=== PATIENT | female | born 1965 | race Caucasian/White ===

== ENCOUNTER 2021-05-18 12:02 | Inpatient (IN) | payer OTHER ==
[2021-05-18] MEDS ORDERED: LORazepam 1 MG TABLET PO PRN (12:49)
[2021-05-18] MEDS ORDERED: BISMUTH SUBSALICYLATE 524 MG/30 ML PO PRN (12:49)
[2021-05-18] MEDS ORDERED: NICOTINE 10 MG CARTRIDGE (INHALER) IH PRN (12:49)
[2021-05-18] MEDS ORDERED: MAG HYDROX/AL HYDROX/SIMETH 30 ML UNIT-DOSE CUP PO PRN (12:49)
[2021-05-18] MEDS ORDERED: ACETAMINOPHEN 325 MG TABLET (FP) PO PRN (12:49)
[2021-05-18] MEDS ORDERED: LOPERAMIDE HCL 2 MG CAPSULE PO PRN (12:49)
[2021-05-18] MEDS ORDERED: MAGNESIUM CITRATE 300 ML BOTTLE PO PRN (12:49)
[2021-05-18] MEDS ORDERED: MAGNESIUM HYDROX 2400MG/30ML ORAL SUSPENSION 30 ML CUP PO PRN (12:49)
[2021-05-18] MEDS ORDERED: MENTHOL/PHENOL 1 EACH UD MM PRN (12:49)
[2021-05-18] MEDS ORDERED: IBUPROFEN 400 MG TABLET (FP) PO PRN (12:49)
[2021-05-18 14:06] VITALS: BMI 36.2
[2021-05-18] MEDS ORDERED: hydrOXYzine PAMOATE 25 MG CAPSULE (FP) PO ONE (15:30)
[2021-05-18] MEDS: hydrOXYzine PAMOATE 25 MG CAPSULE (FP) PO SCH ×3 (15:33→22:32)
[2021-05-18] MEDS: ACETAMINOPHEN 325 MG TABLET (FP) PO PRN ×2 (15:52→22:32)
[2021-05-18] MEDS: ONDANSETRON *ODT* 4 MG TABLET SL PRN (15:52)
[2021-05-18] MEDS: METHOCARBAMOL 500 MG TABLET PO PRN (15:53)
[2021-05-18] MEDS: NICOTINE 21 MG/24 HOURS TOPICAL PATCH TD SCH (15:53)
[2021-05-18] MEDS: PRENATAL VITAMINS W/ FOLIC ACID TABLET (FP) PO SCH (15:53)
[2021-05-18 16:25] LABS: ALBUMIN 3.8 g/dl (3.4-5.0); BLOOD UREA NITROGEN 15.4 mg/dL (7-18)
[2021-05-18 16:26] LABS: HEMATOCRIT 39.3 % (32.4-45.2); HEMOGLOBIN 13.4 GM/dL (10.7-15.3); MCH 32.2 pg (25.7-33.7); MEAN CELL VOLUME 94.8 fl (80-96); MEAN PLT VOLUME 11.3 fl (7.5-11.1); PLATELET COUNT 129 10^3/uL (134-434); RBC 4.15 M/mm3 (3.60-5.2); WHITE BLOOD COUNT 5.4 K/mm3 (4.0-10.0)
[2021-05-18 16:28] LABS: CREATININE 0.9 mg/dL (0.55-1.3)
[2021-05-18 16:30] LABS: BILIRUBIN,TOTAL 0.4 mg/dL (0.2-1); TOT PROT 7.8 g/dl (6.4-8.2)
[2021-05-18] MEDS: LORazepam 2 MG TABLET PO SCH ×2 (18:20→22:33)
[2021-05-18] MEDS ORDERED: MELATONIN 5 MG TABLETS PO SCH (22:00)
[2021-05-18] MEDS: THIAMINE HCL 100 MG TABLET (FP) PO SCH (22:32)
[2021-05-19] MEDS: LORazepam 2 MG TABLET PO SCH ×4 (06:04→22:41)
[2021-05-19] MEDS: hydrOXYzine PAMOATE 25 MG CAPSULE (FP) PO SCH ×5 (06:04→22:40)
[2021-05-19] MEDS ORDERED: metFORMIN HCL 500 MG TABLET (FP) PO SCH (10:00)
[2021-05-19] MEDS: METHOCARBAMOL 500 MG TABLET PO PRN (10:27)
[2021-05-19] MEDS: ARTIFICIAL TEARS (POLYVINYL ALCOHOL) OPTH DROPS OU SCH (10:28)
[2021-05-19] MEDS: PRENATAL VITAMINS W/ FOLIC ACID TABLET (FP) PO SCH (10:28)
[2021-05-19] MEDS: NICOTINE 21 MG/24 HOURS TOPICAL PATCH TD SCH (10:28)
[2021-05-19] MEDS: ACETAMINOPHEN 325 MG TABLET (FP) PO PRN (10:29)
[2021-05-19] MEDS: LOSARTAN POTASSIUM 50 MG TABLET PO SCH (11:20)
[2021-05-19] MEDS: ZIPRASIDONE 20 MG CAPSULE PO SCH ×2 (13:56→22:40)
[2021-05-19] MEDS ORDERED: ALBUTEROL SO4 HFA INHALER IH PRN (15:03)
[2021-05-19] MEDS: ONDANSETRON *ODT* 4 MG TABLET SL PRN (17:24)
[2021-05-19] MEDS: LACTULOSE 20 GM/30 ML UDC (FOR ORAL USE ONLY) PO SCH ×2 (18:01→22:41)
[2021-05-19] MEDS: metFORMIN HCL 500 MG TABLET (FP) PO SCH (18:02)
[2021-05-19] MEDS ORDERED: SUVOREXANT 10 MG TABLET PO PRN (22:00)
[2021-05-19] MEDS: THIAMINE HCL 100 MG TABLET (FP) PO SCH (22:40)
[2021-05-20] MEDS: hydrOXYzine PAMOATE 25 MG CAPSULE (FP) PO SCH ×5 (05:41→22:06)
[2021-05-20] MEDS: LORazepam 1 MG TABLET PO SCH ×4 (05:42→22:07)
[2021-05-20] MEDS: metFORMIN HCL 500 MG TABLET (FP) PO SCH ×2 (07:07→17:21)
[2021-05-20] MEDS: ARTIFICIAL TEARS (POLYVINYL ALCOHOL) OPTH DROPS OU SCH (10:09)
[2021-05-20] MEDS: PRENATAL VITAMINS W/ FOLIC ACID TABLET (FP) PO SCH (10:10)
[2021-05-20] MEDS: ZIPRASIDONE 20 MG CAPSULE PO SCH ×2 (10:10→22:06)
[2021-05-20] MEDS: METHOCARBAMOL 500 MG TABLET PO PRN (10:10)
[2021-05-20] MEDS: LOSARTAN POTASSIUM 50 MG TABLET PO SCH (10:12)
[2021-05-20] MEDS: LACTULOSE 20 GM/30 ML UDC (FOR ORAL USE ONLY) PO SCH ×4 (10:12→22:06)
[2021-05-20] MEDS: NICOTINE 21 MG/24 HOURS TOPICAL PATCH TD SCH (10:12)
[2021-05-20] MEDS: ONDANSETRON *ODT* 4 MG TABLET SL PRN (10:13)
[2021-05-20 14:08] LABS: SARS-CoV-2 NAA Not Detected (Not Detected)
[2021-05-20] MEDS: THIAMINE HCL 100 MG TABLET (FP) PO SCH (22:06)
[2021-05-21] MEDS ORDERED: LORazepam 0.5 MG TABLET PO PRN
[2021-05-21] MEDS: LORazepam 0.5 MG TABLET PO SCH ×2 (06:11→10:31)
[2021-05-21] MEDS: hydrOXYzine PAMOATE 25 MG CAPSULE (FP) PO SCH ×3 (06:12→14:37)
[2021-05-21] MEDS: metFORMIN HCL 500 MG TABLET (FP) PO SCH (08:31)
[2021-05-21 09:37] VITALS: BP 102/71; PULSE 92; TEMP 97.3
[2021-05-21] MEDS: ONDANSETRON *ODT* 4 MG TABLET SL PRN (09:41)
[2021-05-21] MEDS: PRENATAL VITAMINS W/ FOLIC ACID TABLET (FP) PO SCH (10:29)
[2021-05-21] MEDS: NICOTINE 21 MG/24 HOURS TOPICAL PATCH TD SCH (10:29)
[2021-05-21] MEDS: LOSARTAN POTASSIUM 50 MG TABLET PO SCH (10:30)
[2021-05-21] MEDS: ZIPRASIDONE 20 MG CAPSULE PO SCH (10:30)
[2021-05-21] MEDS: ARTIFICIAL TEARS (POLYVINYL ALCOHOL) OPTH DROPS OU SCH (10:31)
[2021-05-21] MEDS: METHOCARBAMOL 500 MG TABLET PO PRN (10:31)
[2021-05-21] MEDS: LACTULOSE 20 GM/30 ML UDC (FOR ORAL USE ONLY) PO SCH ×2 (10:33→14:37)
[2021-05-22] MEDS ORDERED: LORazepam 0.5 MG TABLET PO ONE (05:00)
== END 2021-05-21 16:10 | disposition home or self-care (01) | DRG 897 ==
LOC: YASAS 12:02 → Y6N 15:20
PROVIDERS: ADMIT Allergy & Immunology; ATTEND Allergy & Immunology
PROC: HZ2ZZZZ Detoxification Services for Substance Abuse Treatment (ICD-10-PCS; principal; 2021-05-18)
DX: F10.230 Alcohol dependence with withdrawal, uncomplicated (principal); F13.20 Sedative, hypnotic or anxiolytic dependence, uncomplicated; E72.20 Disorder of urea cycle metabolism, unspecified; F12.20 Cannabis dependence, uncomplicated; F17.210 Nicotine dependence, cigarettes, uncomplicated; F10.280 Alcohol dependence with alcohol-induced anxiety disorder; F10.282 Alcohol dependence with alcohol-induced sleep disorder; F20.9 Schizophrenia, unspecified; I10 Essential (primary) hypertension; J45.909 Unspecified asthma, uncomplicated; E11.9 Type 2 diabetes mellitus without complications; Z79.84 Long term (current) use of oral hypoglycemic drugs; K74.60 Unspecified cirrhosis of liver; Z62.810 Personal history of physical and sexual abuse in childhood; E66.9 Obesity, unspecified; Z68.36 Body mass index [BMI] 36.0-36.9, adult; Z86.19 Personal history of other infectious and parasitic diseases
CPT/HCPCS: 36415; 80053; 82140; 82962; 85027; 86593; 86780; 93005; 93010; C9803; Q0162; U0003; U0005

== ENCOUNTER 2021-10-28 10:44 | Inpatient (IN) | payer OTHER ==
[2021-10-28 12:23] VITALS: BMI 36.9
[2021-10-28] MEDS ORDERED: MAG HYDROX/AL HYDROX/SIMETH 30 ML UNIT-DOSE CUP PO PRN (13:01)
[2021-10-28] MEDS ORDERED: NICOTINE POLACRILEX 4 MG GUM BUC PRN (13:01)
[2021-10-28] MEDS ORDERED: LORazepam 1 MG TABLET PO PRN (13:01)
[2021-10-28] MEDS ORDERED: LOPERAMIDE HCL 2 MG CAPSULE PO PRN (13:01)
[2021-10-28] MEDS ORDERED: ACETAMINOPHEN 325 MG TABLET (FP) PO PRN (13:01)
[2021-10-28] MEDS ORDERED: ONDANSETRON *ODT* 4 MG TABLET SL PRN (13:01)
[2021-10-28] MEDS ORDERED: IBUPROFEN 600 MG TABLET (FP) PO PRN (13:01)
[2021-10-28] MEDS ORDERED: BENZOCAINE/MENTHOL (CHLORASEPTIC ) LOZENGE MM PRN (13:01)
[2021-10-28] MEDS ORDERED: MAGNESIUM CITRATE 300 ML BOTTLE PO PRN (13:01)
[2021-10-28] MEDS ORDERED: BISMUTH SUBSALICYLATE 524 MG/30 ML PO PRN (13:01)
[2021-10-28] MEDS ORDERED: IBUPROFEN 400 MG TABLET (FP) PO PRN (13:01)
[2021-10-28] MEDS ORDERED: NICOTINE 10 MG CARTRIDGE (INHALER) IH PRN (13:01)
[2021-10-28] MEDS ORDERED: DICYCLOMINE HCL 10 MG CAPSULE PO PRN (13:01)
[2021-10-28] MEDS ORDERED: ACETAMINOPHEN 325 MG TABLET (FP) ONE (13:03)
[2021-10-28] MEDS ORDERED: ALBUTEROL SO4 HFA INHALER IH PRN (13:04)
[2021-10-28] MEDS ORDERED: LORazepam 2 MG TABLET PO ONE (13:15)
[2021-10-28] MEDS: ACETAMINOPHEN 325 MG TABLET (FP) PO PRN (13:23)
[2021-10-28] MEDS: hydrOXYzine PAMOATE 25 MG CAPSULE (FP) PO SCH ×3 (16:03→22:10)
[2021-10-28] MEDS: ARTIFICIAL TEARS (POLYVINYL ALCOHOL) OPTH DROPS OU SCH (16:03)
[2021-10-28] MEDS: PRENATAL VITAMINS W/ FOLIC ACID TABLET (FP) PO SCH (16:04)
[2021-10-28] MEDS: MAGNESIUM HYDROX 2400MG/30ML ORAL SUSPENSION 30 ML CUP PO PRN (16:06)
[2021-10-28 16:49] LABS: HEMATOCRIT 35.8 % (32.4-45.2); MCH 30.2 pg (25.7-33.7); MCHC 33.6 g/dl (32.0-36.0); MEAN CELL VOLUME 90.1 fl (80-96); MEAN PLT VOLUME 10.7 fl (7.5-11.1); PLATELET COUNT 136 10^3/uL (134-434); RBC 3.97 M/mm3 (3.60-5.2); RDW 13.5 % (11.6-15.6); WHITE BLOOD COUNT 5.5 K/mm3 (4.0-10.0)
[2021-10-28 17:02] LABS: CALCIUM 8.8 mg/dL (8.5-10.1)
[2021-10-28 17:03] LABS: ALBUMIN 3.6 g/dl (3.4-5.0); BLOOD UREA NITROGEN 12.5 mg/dL (7-18)
[2021-10-28 17:04] LABS: BILIRUBIN,TOTAL 0.4 mg/dL (0.2-1); TOT PROT 7.7 g/dl (6.4-8.2)
[2021-10-28 17:05] LABS: CREATININE 0.9 mg/dL (0.55-1.3)
[2021-10-28] MEDS: metFORMIN HCL 500 MG TABLET (FP) PO SCH (17:53)
[2021-10-28] MEDS: LORazepam 2 MG TABLET PO SCH ×2 (17:53→22:10)
[2021-10-28 18:00] LABS: HIV INTERPRETATION NEGATIVE (NEGATIVE)
[2021-10-28] MEDS: ZIPRASIDONE 20 MG CAPSULE PO SCH (22:08)
[2021-10-28] MEDS: MELATONIN 5 MG TABLETS PO SCH (22:10)
[2021-10-28] MEDS: THIAMINE HCL 100 MG TABLET (FP) PO SCH (22:10)
[2021-10-28] MEDS: BUDESONIDE/FORMETEROL FUMARATE 160/4.5 mcg INHALER IH SCH (22:12)
[2021-10-29] MEDS: LORazepam 2 MG TABLET PO SCH ×4 (06:06→22:36)
[2021-10-29] MEDS: hydrOXYzine PAMOATE 25 MG CAPSULE (FP) PO SCH ×5 (06:06→22:36)
[2021-10-29] MEDS: metFORMIN HCL 500 MG TABLET (FP) PO SCH ×2 (06:06→18:39)
[2021-10-29] MEDS: METHOCARBAMOL 500 MG TABLET PO PRN (09:09)
[2021-10-29] MEDS: ACETAMINOPHEN 325 MG TABLET (FP) PO PRN (09:09)
[2021-10-29] MEDS: PRENATAL VITAMINS W/ FOLIC ACID TABLET (FP) PO SCH (10:59)
[2021-10-29] MEDS: ARTIFICIAL TEARS (POLYVINYL ALCOHOL) OPTH DROPS OU SCH (10:59)
[2021-10-29] MEDS: amLODIPine BESYLATE 5 MG TABLET (FP) PO SCH (10:59)
[2021-10-29] MEDS: ZIPRASIDONE 20 MG CAPSULE PO SCH ×2 (11:02→22:37)
[2021-10-29] MEDS: BUDESONIDE/FORMETEROL FUMARATE 160/4.5 mcg INHALER IH SCH ×2 (11:03→22:36)
[2021-10-29] MEDS: MAGNESIUM HYDROX 2400MG/30ML ORAL SUSPENSION 30 ML CUP PO PRN (18:41)
[2021-10-29] MEDS: MELATONIN 5 MG TABLETS PO SCH (22:36)
[2021-10-29] MEDS: THIAMINE HCL 100 MG TABLET (FP) PO SCH (22:36)
[2021-10-30] MEDS: LORazepam 1 MG TABLET PO SCH ×4 (05:45→22:05)
[2021-10-30] MEDS: hydrOXYzine PAMOATE 25 MG CAPSULE (FP) PO SCH ×5 (05:45→22:05)
[2021-10-30] MEDS: METHOCARBAMOL 500 MG TABLET PO PRN (05:47)
[2021-10-30] MEDS: metFORMIN HCL 500 MG TABLET (FP) PO SCH ×2 (07:18→20:00)
[2021-10-30] MEDS: PRENATAL VITAMINS W/ FOLIC ACID TABLET (FP) PO SCH (10:36)
[2021-10-30] MEDS: amLODIPine BESYLATE 5 MG TABLET (FP) PO SCH (10:36)
[2021-10-30] MEDS: BUDESONIDE/FORMETEROL FUMARATE 160/4.5 mcg INHALER IH SCH ×2 (10:37→22:05)
[2021-10-30] MEDS: ARTIFICIAL TEARS (POLYVINYL ALCOHOL) OPTH DROPS OU SCH (11:07)
[2021-10-30] MEDS: ZIPRASIDONE 20 MG CAPSULE PO SCH ×2 (11:07→22:05)
[2021-10-30] MEDS: MAGNESIUM HYDROX 2400MG/30ML ORAL SUSPENSION 30 ML CUP PO PRN (17:28)
[2021-10-30 17:29] VITALS: RESP 18
[2021-10-30] MEDS: MELATONIN 5 MG TABLETS PO SCH (22:05)
[2021-10-30] MEDS: THIAMINE HCL 100 MG TABLET (FP) PO SCH (22:05)
[2021-10-31] MEDS ORDERED: LORazepam 0.5 MG TABLET PO PRN
[2021-10-31] MEDS: ACETAMINOPHEN 325 MG TABLET (FP) PO PRN (04:50)
[2021-10-31] MEDS ORDERED: INSULIN SLIDING SCALE (NOVOLOG) 1 VIAL SQ ONE (05:16)
[2021-10-31] MEDS: LORazepam 0.5 MG TABLET PO SCH ×2 (06:06→10:17)
[2021-10-31] MEDS: hydrOXYzine PAMOATE 25 MG CAPSULE (FP) PO SCH ×2 (06:07→10:18)
[2021-10-31] MEDS: METHOCARBAMOL 500 MG TABLET PO PRN (06:07)
[2021-10-31] MEDS: metFORMIN HCL 500 MG TABLET (FP) PO SCH (07:03)
[2021-10-31 09:16] VITALS: BP 148/63; PULSE 88; TEMP 96.9
[2021-10-31] MEDS: ZIPRASIDONE 20 MG CAPSULE PO SCH (10:18)
[2021-10-31] MEDS: ARTIFICIAL TEARS (POLYVINYL ALCOHOL) OPTH DROPS OU SCH (10:18)
[2021-10-31] MEDS: PRENATAL VITAMINS W/ FOLIC ACID TABLET (FP) PO SCH (10:18)
[2021-10-31] MEDS: amLODIPine BESYLATE 5 MG TABLET (FP) PO SCH (10:18)
[2021-10-31] MEDS: BUDESONIDE/FORMETEROL FUMARATE 160/4.5 mcg INHALER IH SCH (10:19)
[2021-11-01] MEDS ORDERED: LORazepam 0.5 MG TABLET PO ONE (05:00)
== END 2021-10-31 11:18 | disposition home or self-care (01) | DRG 897 ==
LOC: YASAS 10:44 → Y3N 13:14
PROVIDERS: ADMIT Allergy & Immunology; ATTEND Surgery
PROC: HZ2ZZZZ Detoxification Services for Substance Abuse Treatment (ICD-10-PCS; principal; 2021-10-28)
DX: F10.230 Alcohol dependence with withdrawal, uncomplicated (principal); F13.20 Sedative, hypnotic or anxiolytic dependence, uncomplicated; F12.20 Cannabis dependence, uncomplicated; F17.210 Nicotine dependence, cigarettes, uncomplicated; F20.9 Schizophrenia, unspecified; F10.280 Alcohol dependence with alcohol-induced anxiety disorder; E11.9 Type 2 diabetes mellitus without complications; E66.9 Obesity, unspecified; Z68.36 Body mass index [BMI] 36.0-36.9, adult; Z79.84 Long term (current) use of oral hypoglycemic drugs; Z86.19 Personal history of other infectious and parasitic diseases; Z91.013 Allergy to seafood
CPT/HCPCS: 36415; 80053; 82962; 85027; 86593; 86780; 87389; C9803-CS; Q0162; U0003; U0005